=== PATIENT | female | born 2005 | race Caucasian/White ===

== ENCOUNTER 2024-07-06 23:21 | Emergency (ER) | payer MEDICAID, OTHER ==
[~2024-07-06] VITALS: Ht 170.2 cm; Wt 101.9 kg
[2024-07-07 00:24] LABS: Urine Bacteria None Seen /hpf (None Seen)
[2024-07-07 00:27] VITALS: BP 130/73; PULSE 84; RESP 18; O2SAT 97
[2024-07-07 00:57] LABS: Urine Color Light-Yellow (Yellow)
[2024-07-07 00:58] LABS: Urine Amorphous Crystal FEW /hpf (None Seen); Urine Blood Negative /uL (Negative); Urine Clarity Turbid (Clear); Urine Mucus FEW (None Seen); Urine Protein, UAD 1+ (Negative); Urine Specific Gravity 1.028 (1.001-1.035); Urine Squamous Epithelial Cell FEW /hpf (<5); Urine Urobilinogen Normal (Negative); Urine WBC 8 /HPF (0-5); Urine pH 6.5 (5.0-9.0)
[2024-07-07] MEDS ORDERED: ACET500T58 PO (01:47)
[2024-07-07] MEDS ORDERED: NITR-87 PO (01:47)
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
[2024-07-07 02:15] VITALS: TEMP 98.5
[2024-07-07] MEDS: ONDANSETRON ODT 4 MG TAB PO ONE (02:15)
[2024-07-07] MEDS: ACETAMINOPHEN 325 MG TAB PO ONE (02:15)
--- NOTE | 2024-07-07 03:53 | DVH ---
Examination: HWOCT CLINICAL INDICATION: DIZZINESS DIREAS;Reason for Exam: Ambulatory;Ambulatory;Modes of Transportation DITRANS;How is patien t transported? ;UNKNOWN ITS.LMP;Last menstrual period: N;No;Yes/No/Unknown ITS.PREG;? COMPARISON: None. CONTRAST USED: None. TECHNIQUE: The examination was performed obtaining 5 mm slices without contrast. Multiplanar recons tructions were obtained. CT scan was done according to ALARA (As Low As Reasonably Achievable). FINDINGS: SUPRATENTORIAL BRAIN: Cerebral Hemispheres: There is no midline shift or mass effect, intra- or extra-axial fluid collecti ons or hemorrhage. Periventricular White Matter/Basal Ganglia: No abnormal areas of altered attenuation within the neida ventricular white matter or basal ganglia. POSTERIOR FOSSA: The brainstem is normal, and the visualized cerebellar hemispheres are unremarkable . VENTRICULAR SYSTEM: The ventricular system is normal in size. There is no evidence of hydrocephalus or transependymal flow of cerebrospinal fluid. SKULL BASE AND PARASELLAR REGION: The skull base is normal, with no parasellar masses or abnormaliti es identified. CALVARIUM AND SCALP REGION: No abnormality is seen. PARANASAL SINUSES: No significant inflammatory changes are identified in the paranasal sinuses. IMPRESSION: 1. No intracranial abnormality detected. 2. No acute infarct or space-occupying lesion is seen. 3. No intracranial hemorrhage or calvarial fracture. Suggest MRI brain correlation if clinically deemed necessary. Electronically Signed 07/07/2024 03:52 Bello Garcia
--- NOTE | 2024-07-07 04:06 | DVH ---
Examination: ABPL CLINICAL INDICATION: ABDOMINAL PAIN. COMPARISON: None. CONTRAST USED: None. TECHNIQUE: A plain CT study of the abdomen and pelvis is performed. The examination was performed with 5 mm thin slices. Multiplanar reconstructions were obtained. CT scan done according to ALARA ( As Low As Reasonably Achievable). FINDINGS: CT ABDOMEN: Lung base: The evaluation of lung bases demonstrates no focal infiltrates or pleural effusion. Unenhanced Liver: The liver is normal in size. There is no intrahepatic biliary radicle dilatation. Gallbladder: The gallbladder is normal and reveals no intrinsic abnormality. The common bile duct i s not dilated. Unenhanced Pancreas: The pancreas is normal in size and shape. No focal lesion is seen within. The peripancreatic fat planes are normal. Spleen: The spleen is normal in size and does not show any focal abnormality. Retroperitoneum: Both adrenal glands are normal in size and morphology in this unenhanced CT scan. There is no significant retroperitoneal lymphadenopathy. The kidneys are normal in size with no hydronephrosis or renal calculi. Vessels: Aorta, IVC and the mesenteric vessels cannot be commented in this unenhanced CT scan. Stomach and bowel: The bowel loops are unremarkable. There is no ascites. Skeletal system: Degenerative changes are seen involving the spine in the form of marginal osteophyte s. CT PELVIS: Appendix: The appendix is unremarkable in appearance. Colon: The ascending, transverse, descending, sigmoid colon and rectum are unremarkable. Bladder: The urinary bladder is unremarkable. Uterus and ovaries: Uterus appears normal. No adnexal pathology. No abnormal fluid collection is seen. No pelvic lymphadenopathy is identified. IMPRESSION: 1. No abdominal mass or adenopathy. 2. No ascites. 3. No free air or inflammatory changes. 4. Additional chronic and/or ancillary findings as detailed above. 5. Suggest clinical correlation and follow-up as clinically deemed necessary. Electronically Signed 07/07/2024 04:05 Bello Garcia
== END 2024-07-07 04:46 | disposition home or self-care (01) ==
LOC: ER 23:21
DX: S30.1XXA Contusion of abdominal wall, initial encounter (principal); N39.0 Urinary tract infection, site not specified; V49.88XA Car occupant (driver) (passenger) injured in other specified transport accidents, initial encounter; Y93.I9 Activity, other involving external motion; Y92.488 Other paved roadways as the place of occurrence of the external cause; Y99.8 Other external cause status
CPT/HCPCS: 70450; 74176; 81001; 81025; 99284; Q0162